=== PATIENT | female | born 1935 | race Caucasian/White ===

== ENCOUNTER 2017-11-15 08:56 | Emergency (ER) | payer OTHER ==
[2017-11-15 09:08] VITALS: BMI 24.3
[2017-11-15] MEDS ORDERED: ACETAMINOPHEN 325 MG TABLET (FP) PO ONE (09:28)
[2017-11-15] MEDS ORDERED: ACETAMINOPHEN 325 MG TABLET (FP) ONE (09:40)
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
[2017-11-15 13:49] VITALS: BP 164/74; PULSE 77; TEMP 98.9
== END 2017-11-15 13:49 | disposition home or self-care (01) ==
LOC: JER 08:56
DX: M79.642 Pain in left hand (principal); M79.641 Pain in right hand; M25.552 Pain in left hip; I10 Essential (primary) hypertension; E11.9 Type 2 diabetes mellitus without complications; F03.90 Unspecified dementia, unspecified severity, without behavioral disturbance, psychotic disturbance, mood disturbance, and anxiety; Y04.2XXA Assault by strike against or bumped into by another person, initial encounter; Y93.89 Activity, other specified; Y92.122 Bedroom in nursing home as the place of occurrence of the external cause; Y07.59 Other non-family member, perpetrator of maltreatment and neglect
CPT/HCPCS: 70450-TC; 72125-TC; 73110-TC-LR-FY; 73110-TC-RT-FY; 73130-TC-LR-FY; 73130-TC-RT-FY; 73523-TC-FY; 73562-TC-LT-FY; 99283-25

== ENCOUNTER 2018-07-05 19:18 | Emergency (ER) | payer OTHER ==
--- NOTE | 2018-07-05 19:31 | PDOC ---
History of Present Illness <Rosibel Cerrato - Last Filed: 07/05/18 19:31> - General History Source: Patient - History of Present Illness Initial Comments: 07/05/18 19:49 The patient is an 82 year old female with a significant PMH of HTN, diabetes, dementia, lumbar fracture, and DVT (2014) who presents to the emergency department from [facility] for left sided weakness and left facial droop. Allergies: NKDA PCP: Dr. Schulte <Nae Lao - Last Filed: 07/05/18 19:49> - General Stated Complaint: STROKE Time Seen by Provider: 07/05/18 19:31 Past History - Past Medical History Anemia: Yes (FOLATE DEFICIENCY.) Asthma: No Cancer: No Cardiac Disorders: No CVA: No COPD: No CHF: No Dementia: Yes Diabetes: Yes GI Disorders: Yes (FLATULENCE. CONSTIPATION.) Disorders: No HTN: Yes Hypercholesterolemia: Yes Liver Disease: No Seizures: No Thyroid Disease: No - Surgical History Abdominal Surgery: No Appendectomy: No Cardiac Surgery: No Cholecystectomy: No Lung Surgery: No Neurologic Surgery: No Orthopedic Surgery: Yes (left hip ORIF) - Immunization History Immunization Up to Date: Yes - Suicide/Smoking/Psychosocial Hx Smoking History: Unknown if ever smoked Have you smoked in the past 12 months: No Number of Cigarettes Smoked Daily: 0 Hx Alcohol Use: No Drug/Substance Use Hx: No Substance Use Type: None Hx Substance Use Treatment: No <Rosibel Cerrato - Last Filed: 07/05/18 19:31> <Nae Lao - Last Filed: 07/05/18 19:49> - Past Medical History Allergies/Adverse Reactions: Allergies Allergy/AdvReac Type Severity Reaction Status Date / Time No Known Drug Allergies Allergy Verified 11/15/17 08:59 Critical Care Time/MDM Note - Medical Decision Making Note: 07/05/18 19:48 Dr. Carney, neurosurgery, was paged at this time requesting a call back. <Nae Lao - Last Filed: 07/05/18 19:49> *DC/Admit/Observation/Transfer - Attestations Scribe Attestion: 07/05/18 19:48 Documentation prepared by Nae Lao, acting as medical sociologist for Rosibel Cerrato MD <aNe Lao - Last Filed: 07/05/18 19:49>
[2018-07-05] MEDS ORDERED: SODIUM CHLORIDE 1,000 ML IV SCH (19:45)
[2018-07-05] MEDS ORDERED: LABETALOL HCL 5 MG/1 ML (100MG/20 ML VIAL) IVPUSH ONE ×2 (19:56→21:07)
[2018-07-05 20:01] VITALS: TEMP 96.8
[2018-07-05] MEDS ORDERED: dilTIAZem HCL 125 MG/25 ML - 25 ML VIAL ONE (20:01)
[2018-07-05] MEDS ORDERED: LABETALOL HCL 5 MG/1 ML (200MG/40ML VIAL) IVPB ONE (20:02)
--- NOTE | 2018-07-05 20:02 | PDOC ---
History of Present Illness - General Chief Complaint: CVA/TIA Stated Complaint: STROKE Time Seen by Provider: 07/05/18 19:31 Past History - Past Medical History Allergies/Adverse Reactions: Allergies Allergy/AdvReac Type Severity Reaction Status Date / Time No Known Drug Allergies Allergy Verified 07/05/18 20:01 Anemia: Yes (FOLATE DEFICIENCY.) Asthma: No Cancer: No Cardiac Disorders: No CVA: No COPD: No CHF: No Dementia: Yes Diabetes: Yes GI Disorders: Yes (FLATULENCE. CONSTIPATION.) Disorders: No HTN: Yes Hypercholesterolemia: Yes Liver Disease: No Seizures: No Thyroid Disease: No - Surgical History Abdominal Surgery: No Appendectomy: No Cardiac Surgery: No Cholecystectomy: No Lung Surgery: No Neurologic Surgery: No Orthopedic Surgery: Yes (left hip ORIF) - Immunization History Immunization Up to Date: Yes - Suicide/Smoking/Psychosocial Hx Smoking History: Unknown if ever smoked Have you smoked in the past 12 months: No Number of Cigarettes Smoked Daily: 0 Information on smoking cessation initiated: No Hx Alcohol Use: No Drug/Substance Use Hx: No Substance Use Type: None Hx Substance Use Treatment: No *Physical Exam - Vital Signs Last Vital Signs Temp Pulse Resp BP Pulse Ox 96.8 F L 79 18 194/81 H 98 07/05/18 19:18 07/05/18 19:18 07/05/18 19:18 07/05/18 19:18 07/05/18 19:18 *DC/Admit/Observation/Transfer - Discharge Dispostion Condition at time of disposition: Guarded - Referrals - Patient Instructions - Post Discharge Activity
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
[2018-07-05] MEDS ORDERED: SUCCINYLCHOLINE CHLORIDE 200 MG/10 ML VIAL ONE (20:07)
[2018-07-05] MEDS ORDERED: ETOMIDATE 20 MG/10 ML AMPUL IVPUSH ONE ×2 (20:07→21:08)
--- NOTE | 2018-07-05 20:18 | PDOC ---
Attending Attestation - Critical Care Time Total Critical Care Time: 60 Critical Care Statement: The care of this patient involved high complexity decision making to prevent further life threatening deterioration of the patient 's condition and/or to evaluate & treat vital organ system(s) failure or risk of failure. - Medical Decision Making 07/05/18 19:48 Dr. Carney, neurosurgery, was paged at this time requesting a call back. 07/05/18 19:55 Dr. Carney returned the call. Pt will be transfered for higher level of care. <Nae Lao - Last Filed: 07/05/18 20:54> - Resident Resident Name: Saqib May - ED Attending Attestation I have performed the following: I have examined & evaluated the patient, The case was reviewed & discussed with the resident, I agree w/resident's findings & plan, Exceptions are as noted - HPI HPI: 07/05/18 20:17 83-year-old female suddenly developed left-sided facial and arm weakness at 5: 30 and vomited. She is brought in by ambulance and code escalona was initiated - Physicial Exam PE: 07/05/18 20:18 83-year-old female with left-sided weakness, currently nonverbal. Head normocephalic/atraumatic. Neck no JVD. CVS regular rate and rhythm. Lungs no wheezing, no crackles. Abdomen protuberant, nontender. Extremities no deformities. Skin warm and dry. Neuro patient is nonverbal clear Acu[place], who left sided facial droop and left- sided arm and leg weakness - Medical Decision Making 07/05/18 20:20 CAT scan showed acute right thalamic basal ganglia hemorrhage with intraventricular extension. This 5 cm x 4.4 cm x 3 cm acute right thalamic basal ganglion hemorrhage is seen with moderate. Hemorrhagic edema. There is intraventricular extension of the bleed. There is some mild contralateral midline displacement with partial effacement of the right lateral ventricle and third ventricle. The calvarium appears intact 07/05/18 20:21 Patient's systolic is 194 Protect the patient's airway. She was intubated. She is hypertensive and given labetalol and a propofol drip was started [facility] neurosurgeon, Dr. Golden accepted the case and she will be transferred 07/05/18 22:02 IMP Hemorrhagic CVA,hypertensive emergency ,transferred <Rosibel Cerrato - Last Filed: 07/05/18 22:03>
[2018-07-05] MEDS ORDERED: PROPOFOL 1,000,000 MCG/100 ML VIAL ONE (20:22)
[2018-07-05] MEDS ORDERED: PROPOFOL 20 ML ONE (20:22)
[2018-07-05] MEDS ORDERED: ESMOLOL 2500 MG/250 ML 2,500,000 MCG/250 ML INFUS.BAG IVPB ONE (20:36)
[2018-07-05 20:56] LABS: BASO % 0.2 % (0-2.0); EOS % 0.7 % (0-4.5); HEMATOCRIT 44.8 % (32.4-45.2); HEMOGLOBIN 14.4 GM/dL (10.7-15.3); LYMPH % 64.8 % (8-40); MCH 26.5 pg (25.7-33.7); MCHC 32.1 g/dl (32.0-36.0); MEAN CELL VOLUME 82.6 fl (80-96); MEAN PLT VOLUME 8.1 fl (7.5-11.1); MONO % 2.9 % (3.8-10.2); NEUT % 31.4 % (42.8-82.8); PLATELET COUNT 264 K/MM3 (134-434); RBC 5.43 M/mm3 (3.60-5.2); RDW 13.8 % (11.6-15.6); WHITE BLOOD COUNT 23.8 K/mm3 (4.0-10.0)
[2018-07-05] MEDS ORDERED: SUCCINYLCHOLINE CHLORIDE 200 MG/10 ML VIAL IVPUSH ONE (21:08)
[2018-07-05] MEDS ORDERED: PROPOFOL 200 MG/20 ML VIAL IVPUSH ONE (21:12)
[2018-07-05] MEDS ORDERED: PROPOFOL 1,000,000 MCG/100 ML VIAL IVPB SCH (21:15)
[2018-07-05] MEDS ORDERED: ESMOLOL 2500 MG/250 ML 2,500,000 MCG/250 ML INFUS.BAG IVPB SCH (21:15)
[2018-07-05 21:16] LABS: INR 0.91 (0.83-1.09); PROTHROMBIN TIME (PATIENT) 10.7 SEC (9.7-13.0)
[2018-07-05 21:31] LABS: ALBUMIN 3.8 g/dl (3.4-5.0); ALK PHOS 119 U/L (45-117); ANION GAP 11 MMOL/L (8-16); BILIRUBIN,TOTAL 0.2 mg/dL (0.2-1); BLOOD UREA NITROGEN 20 mg/dL (7-18); CALCIUM 9.2 mg/dL (8.5-10.1); CHLORIDE 103 mmol/L (98-107); CHOLESTEROL 223 mg/dL (50-200); CO2 27 mmol/L (21-32); CREATININE 0.6 mg/dL (0.55-1.3); GLUCOSE,RANDOM 193 mg/dL (74-106); HDL CHOLESTEROL 33 mg/dL (40-60); POTASSIUM 4.6 mmol/L (3.5-5.1); SGOT/AST 23 U/L (15-37); SGPT/ALT 32 U/L (13-61); SODIUM 140 mmol/L (136-145); TOT PROT 7.7 g/dl (6.4-8.2); TRIGLYCERIDES 214 mg/dL (0-150)
[2018-07-05 21:48] LABS: PLATELET ESTIMATE ADEQUATE
[2018-07-05 22:09] VITALS: BP 230/110; PULSE 86
--- NOTE | 2018-07-06 16:15 | EKG ---
Test Reason : Blood Pressure : / mmHG Vent. Rate : 084 BPM Atrial Rate : 084 BPM P-R Int : 156 ms QRS Dur : 132 ms QT Int : 396 ms P-R-T Axes : 055 014 023 degrees QTc Int : 467 ms NORMAL SINUS RHYTHM RIGHT BUNDLE BRANCH BLOCK ABNORMAL ECG WHEN COMPARED WITH ECG OF 22-JUN-2015 14:24, RIGHT BUNDLE BRANCH BLOCK IS NOW PRESENT Confirmed by MD ROBBIE, ROBERT ([id number]) on 07/06/2018 4:15:20 PM Referred By: Confirmed By:ROBERT AVALOS MD
== END 2018-07-05 21:30 | disposition short-term general hospital (02) ==
LOC: JER 19:18
PROC: 0BH17EZ Insertion of Endotracheal Airway into Trachea, Via Natural or Artificial Opening (ICD-10-PCS; principal; 2018-07-05)
PROC: 3E033GC Introduction of Other Therapeutic Substance into Peripheral Vein, Percutaneous Approach (ICD-10-PCS; 2018-07-05)
PROC: 3E033GC Introduction of Other Therapeutic Substance into Peripheral Vein, Percutaneous Approach (ICD-10-PCS; 2018-07-05)
PROC: 3E033GC Introduction of Other Therapeutic Substance into Peripheral Vein, Percutaneous Approach (ICD-10-PCS; 2018-07-05)
PROC: 3E033GC Introduction of Other Therapeutic Substance into Peripheral Vein, Percutaneous Approach (ICD-10-PCS; 2018-07-05)
PROC: 3E033GC Introduction of Other Therapeutic Substance into Peripheral Vein, Percutaneous Approach (ICD-10-PCS; 2018-07-05)
DX: I61.8 Other nontraumatic intracerebral hemorrhage (principal); I16.0 Hypertensive urgency; R29.810 Facial weakness; G81.94 Hemiplegia, unspecified affecting left nondominant side; I10 Essential (primary) hypertension; E11.9 Type 2 diabetes mellitus without complications; Z79.84 Long term (current) use of oral hypoglycemic drugs; Z86.718 Personal history of other venous thrombosis and embolism; Z79.01 Long term (current) use of anticoagulants; F03.90 Unspecified dementia, unspecified severity, without behavioral disturbance, psychotic disturbance, mood disturbance, and anxiety
CPT/HCPCS: 31500; 36415; 70450-TC; 71045-TC-FY; 80053; 82465; 82550; 83718; 83721; 84478; 84484; 85025; 85610; 86850; 86900; 86901; 93005; 93010; 96365; 96368; 96375; 99285-25; J7030